=== PATIENT | female | born 1980 | race Caucasian/White ===

== ENCOUNTER 2017-01-17 12:58 | Emergency (ER) | payer OTHER ==
--- NOTE | ~2017-01-17 | CT16 ---
[facility] A Service of [facility] RADIOLOGY TEXT RESULTS PATIENT: SHMUEL STEINER LOCATION: SED : 84 UNIT #: [id number] AGE: [address]: Davis Gutiérrez MD SEX: F ORDER DR: [id number] [place] [id number] E MR#: [id number] #: [id number] NAME: SHMUEL STEINER : 1980 SEX: F STUDY DATE/TIME: 01/17/2017 15:43 UNIT: SED ROOM: STUDY DESCRIPTION: CT Angio Chest for PE Attending Physician: Davis Gutiérrez M.D. Ordering Physician: Davis Gutiérrez M.D. Primary Care Physician: No Primary Care Physician MEDICAL IMAGING REPORT This report is preliminary unless electronic signature is present. EXAM CT angiography of the chest with contrast pulmonary embolism protocol. DATE OF EXAM 01/17/2017 HISTORY Right upper quadrant abdominal pain for 2 weeks. COMPARISON None. PROCEDURE 2 mm axial images through the chest after IV contrast administration. 3-D coronal MIP reformatted images were also obtained. TECHNIQUE NOTE: This CT exam was performed with one or more of the following radiation dose reduction techniques: automatic exposure control, adjustment of mA and/or kV according to patient size, and iterative reconstruction. FINDINGS No pulmonary embolism. No thoracic aortic aneurysm or aortic dissection. Heart size within normal limits. No pericardial effusion or pleural effusion. No pathologically enlarged lymph nodes are identified. No acute airspace disease is seen. Cholecystectomy changes. No acute osseous abnormalities are identified. IMPRESSION 1. No acute chest findings. No pulmonary embolism. No acute airspace disease. [facility] A Service [facility] RADIOLOGY TEXT RESULTS PATIENT: SHMUEL STEINER LOCATION: SED : 84 UNIT #: [id number] AGE: [address]: Davis Gutiérrez MD SEX: F ORDER DR: Dictated by... Yasmeen Borja M.D. THIS IS AN ELECTRONICALLY VERIFIED REPORT Yasmeen Borja M.D. at 01/18/2017 8:34 AM [place] TD: 01/17/2017 20:30 JOB #: [id number] MEDICAL IMAGING REPORT Page 1 of 1
[~2017-01-17 12:58] MED LIST: AMBIEN PO; NO MEDICATIONS; NORCO1 TAB 10/3 PO; PEPCID AC20 M2 PO; PERCOCET5/325 PO; PHENERGAN PO; PHENERGAN25 MG PO; VICODIN 5/1 TAB 5/50 PO; ZOFRAN PO
[2017-01-17 14:40] LABS: CREATININE SERUM 0.8 mg/dL (0.6-1.4); GLOM FILT RATE Estimated 96.3 mL/min (>60)
== END 2017-01-17 16:59 | disposition home or self-care (01) ==
LOC: SED 12:58
PROVIDERS: Emergency Medicine
DX: R10.9 Unspecified abdominal pain (principal); R07.9 Chest pain, unspecified; F17.210 Nicotine dependence, cigarettes, uncomplicated; Z90.49 Acquired absence of other specified parts of digestive tract; Z98.51 Tubal ligation status
CPT/HCPCS: 71275; 82565; 84520; 96374; 99284; J0780; Q9967